=== PATIENT | male | born 1960 | race Caucasian/White ===

== ENCOUNTER 2016-04-10 04:20 | Inpatient (IN) | payer MEDICARE, OTHER ==
[~2016-04-10] VITALS: Ht 172.7 cm; Wt 77.1 kg
[2016-04-10 04:51] LABS: GLUCOSE COMMENT 1 Doctor Notified; GLUCOSE,POINT OF CARE 411 MG/DL (70-110)
[2016-04-10] MEDS ORDERED: INSULIN REGULAR, HUMAN 100 UNITS/ML SQ ONE (05:00)
[2016-04-10 05:01] LABS: BASOPHILS # (AUTO) 0.01 K/uL (0.00-0.20); BASOPHILS % (AUTO) 0.1 % (0.0-2.0); EOSINOPHILS # (AUTO) 0.02 K/uL (0.00-0.70); HEMATOCRIT 34.4 % (41-53); LYMPHOCYTES # (AUTO) 0.5 K/uL (1.0-4.8); LYMPHOCYTES % (AUTO) 4.7 % (22.0-44.0); MEAN CORPUSCULAR HEMOGLOBIN 34.6 pg (26.0-34.0); MEAN CORPUSCULAR VOLUME 99 fL (80-100); MONOCYTES # (AUTO) 0.9 K/uL (0.1-1.0); MONOCYTES % (AUTO) 8.2 % (2.0-9.0); NEUTROPHILS # (AUTO) 9.5 K/uL (1.8-7.7); PLATELET COUNT (AUTO) 116 K/uL (150-450); RED BLOOD CELL COUNT(AUTO) 3.48 MIL/uL (4.50-5.90); RED CELL DISTRIBUTION WIDTH 15.8 % (11.5-14.5)
[2016-04-10 05:04] LABS: NEUTROPHILS % (AUTO) 86.8 % (40.0-70.0)
[2016-04-10 05:05] LABS: ANION GAP 16 mmol/L (8-16); CALCIUM, TOTAL 8.6 mg/dL (8.8-10.5); CARBON DIOXIDE 22 mmol/L (22-29); CHLORIDE 95 mmol/L (98-107); CREATININE 2.95 mg/dL (0.60-1.30); GLOMERULAR FILTR. RATE CALC 22 mL/min (>60); POTASSIUM 5.7 mmol/L (3.5-5.1); SODIUM SERUM 133 mmol/L (136-145); UREA NITROGEN, BLOOD 47 mg/dL (7-18)
[2016-04-10 05:12] LABS: ALANINE AMINOTRANSFERASE 43 U/L (12-78); ALBUMIN 3.2 g/dL (3.4-5.0); ASPARTATE AMINOTRANSFERASE 48 U/L (15-37); BILIRUBIN,TOTAL 3.6 mg/dL (0.1-1.0); TOTAL PROTEIN, SERUM 6.7 g/dL (6.4-8.2)
[2016-04-10] MEDS ORDERED: HYDROmorphone 2 MG/ML SYRINGE IVP ONE (06:00)
[2016-04-10] MEDS ORDERED: LORazepam 2 MG/ML VIAL IVP ONE (06:00)
[2016-04-10] MEDS ORDERED: ONDANSETRON HCL 4 MG/2 ML VIAL IVP PRN ×3 (06:00→14:45)
[2016-04-10] MEDS ORDERED: FUROSEMIDE 40 MG/4 ML VIAL IVP ONE (06:00)
[2016-04-10] MEDS ORDERED: LACTULOSE 20 GM/30 ML SOLUTION UDCUP PO ONE (06:00)
[2016-04-10] MEDS ORDERED: 0.9% SODIUM CHLORIDE 10 ML SYRINGE IVP PRN ×2 (06:00→06:30)
[2016-04-10] MEDS ORDERED: SODIUM POLYSTYRENE SULFONATE 15 GM/60 ML SUSPENSION BOTTLE PO ONE (06:00)
[2016-04-10] MEDS ORDERED: ACETAMINOPHEN 325 MG TABLET PO PRN ×3 (06:00→14:45)
[2016-04-10] MEDS ORDERED: ONDANSETRON HCL 4 MG/2 ML VIAL IVP ONE (06:00)
[2016-04-10 06:23] LABS: B-TYPE NATRIURETIC PEPTIDE 39 pg/mL (0-100)
[2016-04-10 06:36] LABS: GLUCOSE,POINT OF CARE 301 MG/DL (70-110)
[2016-04-10 12:12] LABS: GLUCOSE,POINT OF CARE 239 MG/DL (70-110)
[2016-04-10 13:27] VITALS: BP 114/96
[2016-04-10] MEDS ORDERED: MORPHINE SULFATE 4 MG/ML SYRINGE IVP PRN (14:45)
[2016-04-10] MEDS ORDERED: ZOLPIDEM TARTRATE 5 MG TABLET PO PRN (14:45)
[2016-04-10] MEDS ORDERED: BISACODYL 10 MG RECTAL RECTAL SUPPOSITORY PR PRN (14:45)
[2016-04-10] MEDS ORDERED: ALBUTEROL SULFATE 2.5 MG/0.5 ML NEB SOLUTION NEB PRN (14:45)
[2016-04-10] MEDS ORDERED: HYDROCODONE/ACETAMINOPHEN 5-325 MG TABLET PO PRN (14:45)
[2016-04-10] MEDS ORDERED: IPRATROPIUM BROMIDE 0.5 MG/2.5 ML NEB SOLUTION NEB PRN (14:45)
[2016-04-10 15:19] LABS: BASOPHILS # (AUTO) 0.03 K/uL (0.00-0.20); BASOPHILS % (AUTO) 0.3 % (0.0-2.0); EOSINOPHILS # (AUTO) 0.07 K/uL (0.00-0.70); EOSINOPHILS % (AUTO) 0.65 % (1.0-6.0); HEMATOCRIT 31.9 % (41-53); HEMOGLOBIN 11.3 g/dL (13.5-17.5); LYMPHOCYTES # (AUTO) 1.1 K/uL (1.0-4.8); LYMPHOCYTES % (AUTO) 10.7 % (22.0-44.0); MEAN CORPUSCULAR HEMOGLOBIN 34.9 pg (26.0-34.0); MEAN CORPUSCULAR HGB CONC 35.4 G/dL (31.0-37.0); MEAN CORPUSCULAR VOLUME 99 fL (80-100); MONOCYTES % (AUTO) 10.2 % (2.0-9.0); NEUTROPHILS % (AUTO) 78.2 % (40.0-70.0); PLATELET COUNT (AUTO) 91 K/uL (150-450); RED BLOOD CELL COUNT(AUTO) 3.23 MIL/uL (4.50-5.90); RED CELL DISTRIBUTION WIDTH 16.1 % (11.5-14.5); WHITE BLOOD COUNT (AUTO) 10.2 K/uL (4.5-11.0)
[2016-04-10] MEDS ORDERED: PNEUMOCOCCAL VACCINE POLYVALENT 0.5 ML VIAL [PPSV23] IM ONE (15:30)
[2016-04-10] MEDS ORDERED: DEXTROSE 50%-WATER 25 GM/50 ML SYRINGE IVP PRN (15:45)
[2016-04-10 15:52] LABS: ALBUMIN 2.8 g/dL (3.4-5.0); BILIRUBIN,TOTAL 3.2 mg/dL (0.1-1.0); CALCIUM, TOTAL 8.3 mg/dL (8.8-10.5); CREATININE 2.28 mg/dL (0.60-1.30); POTASSIUM 3.7 mmol/L (3.5-5.1); TOTAL PROTEIN, SERUM 6.2 g/dL (6.4-8.2)
[2016-04-10 16:57] LABS: CREATINE KINASE MB 5.4 ng/mL (0-5)
[2016-04-10] MEDS: SODIUM CHLORIDE 0.9% 1,000 ML IV SCH (17:05)
[2016-04-10] MEDS: HEPARIN SODIUM,PORCINE 5,000 UNITS/ML VIAL SQ SCH (17:05)
[2016-04-10] MEDS: INSULIN ASPART 100 UNITS/ML SQ PRN (17:13)
[2016-04-10 19:48] VITALS: BP 97/56
[2016-04-10] MEDS: INSULIN DETEMIR 100 UNITS/ML SQ SCH (21:00)
[2016-04-10] MEDS: DOCUSATE SODIUM 100 MG CAPSULE PO SCH (21:00)
[2016-04-10 23:45] VITALS: BP 99/54
[2016-04-11] MEDS: HEPARIN SODIUM,PORCINE 5,000 UNITS/ML VIAL SQ SCH ×4 (01:11→23:38)
[2016-04-11] MEDS: SODIUM CHLORIDE 0.9% 1,000 ML IV SCH (04:40)
[2016-04-11 04:42] VITALS: BP 99/46
[2016-04-11] MEDS: INSULIN ASPART 100 UNITS/ML SQ PRN ×4 (06:23→21:38)
[2016-04-11 07:03] LABS: BASOPHILS # (AUTO) 0.02 K/uL (0.00-0.20); BASOPHILS % (AUTO) 0.3 % (0.0-2.0); EOSINOPHILS # (AUTO) 0.04 K/uL (0.00-0.70); EOSINOPHILS % (AUTO) 0.63 % (1.0-6.0); HEMATOCRIT 29.8 % (41-53); HEMOGLOBIN 10.4 g/dL (13.5-17.5); MEAN CORPUSCULAR VOLUME 100 fL (80-100); MONOCYTES # (AUTO) 0.7 K/uL (0.1-1.0); MONOCYTES % (AUTO) 10.1 % (2.0-9.0); NEUTROPHILS # (AUTO) 4.7 K/uL (1.8-7.7); PLATELET COUNT (AUTO) 77 K/uL (150-450); RED BLOOD CELL COUNT(AUTO) 2.98 MIL/uL (4.50-5.90); RED CELL DISTRIBUTION WIDTH 16.2 % (11.5-14.5); WHITE BLOOD COUNT (AUTO) 6.4 K/uL (4.5-11.0)
[2016-04-11 07:08] LABS: ALBUMIN 2.5 g/dL (3.4-5.0); BILIRUBIN,TOTAL 2.7 mg/dL (0.1-1.0); CALCIUM, TOTAL 7.8 mg/dL (8.8-10.5); CREATININE 1.5 mg/dL (0.60-1.30); POTASSIUM 3.3 mmol/L (3.5-5.1); TOTAL PROTEIN, SERUM 5.6 g/dL (6.4-8.2)
[2016-04-11 07:33] VITALS: BP 99/56
[2016-04-11] MEDS: DOCUSATE SODIUM 100 MG CAPSULE PO SCH ×2 (08:14→21:34)
[2016-04-11] MEDS: PANTOPRAZOLE SODIUM 40 MG/VIAL IVP SCH (08:14)
[2016-04-11 11:57] VITALS: BP 103/53
[2016-04-11] MEDS ORDERED: POTASSIUM CHLORIDE 20 MEQ ER TABLET PO ONE (12:00)
[2016-04-11] MEDS: POTASSIUM CHL 20 MEQ/0.9% NS 1,000 ML IV SCH (12:07)
[2016-04-11 15:16] LABS: GLUCOSE COMMENT 1 Received Meds; GLUCOSE,POINT OF CARE 357 MG/DL (70-110)
[2016-04-11 15:24] VITALS: BP 96/52
[2016-04-11 19:16] VITALS: BP 100/57
[2016-04-11] MEDS: INSULIN DETEMIR 100 UNITS/ML SQ SCH (21:38)
[2016-04-11 23:20] VITALS: BP 97/57
[2016-04-12] MEDS: POTASSIUM CHL 20 MEQ/0.9% NS 1,000 ML IV SCH (01:33)
[2016-04-12] MEDS ORDERED: DEXTROSE 50%-WATER 25 GM/50 ML SYRINGE IVP PRN (04:15)
[2016-04-12 04:32] VITALS: BP 101/61
[2016-04-12] MEDS: INSULIN ASPART 100 UNITS/ML SQ PRN ×2 (06:36→12:09)
[2016-04-12 07:33] VITALS: BP 95/59
[2016-04-12 07:57] LABS: BASOPHILS % (AUTO) 0.5 % (0.0-2.0); EOSINOPHILS % (AUTO) 1.2 % (1.0-6.0); HEMATOCRIT 30.3 % (41-53); HEMOGLOBIN 10.4 g/dL (13.5-17.5); LYMPHOCYTES % (AUTO) 18.2 % (22.0-44.0); MEAN CORPUSCULAR HEMOGLOBIN 34.5 pg (26.0-34.0); MEAN CORPUSCULAR HGB CONC 34.2 G/dL (31.0-37.0); MEAN CORPUSCULAR VOLUME 101 fL (80-100); MONOCYTES # (AUTO) 0.5 K/uL (0.1-1.0); MONOCYTES % (AUTO) 8.6 % (2.0-9.0); NEUTROPHILS # (AUTO) 4.1 K/uL (1.8-7.7); NEUTROPHILS % (AUTO) 71.5 % (40.0-70.0); PLATELET COUNT (AUTO) 67 K/uL (150-450); RED BLOOD CELL COUNT(AUTO) 3.01 MIL/uL (4.50-5.90); RED CELL DISTRIBUTION WIDTH 15.4 % (11.5-14.5); WHITE BLOOD COUNT (AUTO) 5.7 K/uL (4.5-11.0)
[2016-04-12] MEDS: PANTOPRAZOLE SODIUM 40 MG/VIAL IVP SCH (08:35)
[2016-04-12] MEDS: DOCUSATE SODIUM 100 MG CAPSULE PO SCH (08:35)
[2016-04-12 08:41] LABS: ALANINE AMINOTRANSFERASE 28 U/L (12-78); ALBUMIN 2.1 g/dL (3.4-5.0); ANION GAP 5 mmol/L (8-16); ASPARTATE AMINOTRANSFERASE 25 U/L (15-37); BILIRUBIN,TOTAL 2.5 mg/dL (0.1-1.0); CALCIUM, TOTAL 7.3 mg/dL (8.8-10.5); CARBON DIOXIDE 31 mmol/L (22-29); CHLORIDE 107 mmol/L (98-107); CREATININE 0.98 mg/dL (0.60-1.30); GLOMERULAR FILTR. RATE CALC > 60 mL/min (>60); POTASSIUM 3.4 mmol/L (3.5-5.1); SODIUM SERUM 143 mmol/L (136-145); TOTAL PROTEIN, SERUM 5.2 g/dL (6.4-8.2); UREA NITROGEN, BLOOD 20 mg/dL (7-18)
[2016-04-12] MEDS: HEPARIN SODIUM,PORCINE 5,000 UNITS/ML VIAL SQ SCH (08:42)
[2016-04-12] MEDS ORDERED: INSULIN DETEMIR 100 UNITS/ML SQ SCH (09:00)
[2016-04-12] MEDS ORDERED: MAGNESIUM SULFATE 1 GM in DEXTROSE 5%-WATER 50 ML IV ONE (11:00)
[2016-04-12 11:17] LABS: RBC MORPHOLOGY COMMENT ABNORMAL RBC MORPH
[2016-04-12 11:18] VITALS: BP 101/61
[2016-04-12 14:09] LABS: ADD UA MICROSCOPIC YES; APPEARANCE,URINE CLEAR (CLEAR); GLUCOSE, URINE (UA) >=1000 mg/dL (NEGATIVE); KETONES,URINE 15 mg/dL (NEGATIVE); LEUKOCYTE ESTERASE ,URINE NEGATIVE (NEGATIVE); OCCULT BLOOD,URINE NEGATIVE (NEGATIVE); PH,URINE 6.5 (5.0-8.0); PROTEIN,URINE NEGATIVE (NEGATIVE)
[2016-04-12 14:11] LABS: RBC,URINE None Seen /HPF (0-2)
[2016-04-12 14:12] LABS: SQUAMOUS EPITHELIAL CELL,UR Rare /LPF (None Seen); WBC,URINE 0-2 /HPF (0-5)
[2016-04-12 15:50] VITALS: BP 99/59
[2016-04-12] MEDS ORDERED: DOXY50SY PO (16:49)
[2016-04-12 17:26] LABS: GLUCOSE COMMENT 1 Received Meds; GLUCOSE,POINT OF CARE 286 MG/DL (70-110)
[2016-04-21 11:41] LABS: GLUCOSE COMMENT 1 Received Meds; GLUCOSE,POINT OF CARE 308 MG/DL (70-110)
[2016-04-21 11:47] LABS: GLUCOSE COMMENT 1 Received Meds; GLUCOSE,POINT OF CARE 272 MG/DL (70-110)
[2016-04-21 11:48] LABS: GLUCOSE COMMENT 1 Received Meds; GLUCOSE,POINT OF CARE 172 MG/DL (70-110)
== END 2016-04-12 17:45 | disposition home or self-care (01) | DRG 682 ==
LOC: EMS 04:23 → EEVIPCON 04:23 → 5N 12:50
PROVIDERS: ADMIT Hospitalist; ATTEND Hospitalist
DX: N17.9 Acute kidney failure, unspecified (principal); G93.40 Encephalopathy, unspecified; E43 Unspecified severe protein-calorie malnutrition; D61.818 Other pancytopenia; C22.0 Liver cell carcinoma; L03.114 Cellulitis of left upper limb; E87.6 Hypokalemia; F41.9 Anxiety disorder, unspecified; F03.90 Unspecified dementia, unspecified severity, without behavioral disturbance, psychotic disturbance, mood disturbance, and anxiety; B19.20 Unspecified viral hepatitis C without hepatic coma; E11.65 Type 2 diabetes mellitus with hyperglycemia; K70.30 Alcoholic cirrhosis of liver without ascites; D64.9 Anemia, unspecified; E86.0 Dehydration; G47.00 Insomnia, unspecified; N40.0 Benign prostatic hyperplasia without lower urinary tract symptoms; E83.42 Hypomagnesemia; F15.10 Other stimulant abuse, uncomplicated; Z79.899 Other long term (current) drug therapy; Z90.49 Acquired absence of other specified parts of digestive tract; Z96.649 Presence of unspecified artificial hip joint; Z98.890 Other specified postprocedural states; Z87.891 Personal history of nicotine dependence
CPT/HCPCS: 70450; 76770; 82962; 83735; 84132; 93005; 96372; 96374; 96375; 97161; 99285; C9113; G0480; J1170; J1644; J1815; J1940; J2060; J2405; J3475; J3480; J7030; J7060